=== PATIENT | female | born 1980 | race Caucasian/White ===

== ENCOUNTER 2019-10-08 06:25 | Emergency (ER) | payer MEDICAID ==
[~2019-10-08] VITALS: Ht 175.3 cm; Wt 122.7 kg
[2019-10-08 06:36] VITALS: TEMP 97.8
[2019-10-08 07:33] LABS: BASO % 0.4 % (0.0-2.0); EOS % 0.1 % (0-4.0); GRAN # 6.2 (1.4-6.5); GRAN % 74.5 % (42.2-75.2); LYMPH # 1.5 (1.2-3.4); LYMPH % 17.8 % (20.0-51.0); MEAN CELL VOLUME 69 fl (80.0-100.0); MEAN CORPUSCULAR HGB CONC 29 g/dl (33.0-37.0); MEAN PLATELET VOLUME 9.6 fl (7.4-10.4); MONO # 0.6 (0.1-0.6); MONO % 6.7 % (1.7-9.3); PLATELET COUNT 443 K/mm3 (130-400); RED BLOOD COUNT 3.97 M/mm3 (4.10-5.30); REDCELL DISTRIBUTION WIDTH-CV 19.9 % (11.5-14.5)
[2019-10-08 07:35] LABS: HEMATOCRIT 27.2 % (37.0-47.0); HEMOGLOBIN 7.8 g/dl (12.5-16.0); MEAN CORPUSCULAR HEMOGLOBIN 20 pg (27.0-31.0)
[2019-10-08 07:44] LABS: ALBUMIN 4.4 gm/dL (3.5-5.0); BILIRUBIN,TOTAL 0.4 mg/dL (0.0-1.0); C-REACTIVE PROTEIN 3.7 mg/dL (0.0-0.9); CALCIUM 9.4 mg/dL (8.4-10.2); CREATININE, serum 0.7 (0.52-1.25); POTASSIUM 3.9 mmol/L (3.4-5.0); TOTAL PROTEIN 7.9 gm/dL (6.4-8.2)
[2019-10-08 07:49] LABS: COLLECTION METHOD CLEAN CATCH
[2019-10-08 08:06] LABS: MUCOUS Present /lpf; PH 6 (5-8); URINE APPEARANCE Cloudy; URINE BACTERIA Occasional /hpf; URINE BILIRUBIN Negative (NEGATIVE); URINE BLOOD 3+ (NEGATIVE); URINE CALCIUM OXALATE CRYSTAL Present /hpf; URINE COLOR Red; URINE GLUCOSE Negative (NEGATIVE); URINE KETONE Negative (NEGATIVE); URINE LEUKOCYTE ESTERASE 2+ (NEGATIVE); URINE NITRATE Negative (NEGATIVE); URINE PROTEIN(semi-quant) 2+ (NEGATIVE); URINE RBC >50 /hpf
[2019-10-08] MEDS ORDERED: PERCOCET 325 MG1 TA2 PO (14:03)
[2019-10-08 14:45] VITALS: BP 146/87; PULSE 110
[2019-10-08] MEDS ORDERED: DAZIDOX10 MG PO (15:23)
[2019-10-08] MEDS ORDERED: TYLENOL 500MG500 MG PO (15:24)
== END 2019-10-08 14:45 | disposition home or self-care (01) ==
LOC: COL.ER 06:25
PROVIDERS: Emergency Medicine
DX: C53.9 Malignant neoplasm of cervix uteri, unspecified (principal)
CPT/HCPCS: J1170; J2550; J7030; J7120; Q9967

== ENCOUNTER 2019-10-08 14:05 | Outpatient (RCR) | payer MEDICAID ==
[2019-10-08] VITALS (7 sets, daily range): BP systolic 131–156; BP diastolic 76–89; PULSE 84–96; TEMP 98.2–99.1
[~2019-10-08 14:05] MED LIST: PERCOCET 325 MG1 TA2 PO
[2019-10-08] MEDS ORDERED: DAZIDOX10 MG PO (15:23)
[2019-10-08] MEDS ORDERED: TYLENOL 500MG500 MG PO (15:24)
--- NOTE | 2019-10-08 19:20 | NUR ---
Transfusion of 1 unit PRBC is complete. pt has tolerated transfusion with no problem, she has been ambulatory to br several times during transfusion, she has c/o rt lower back pain and lower abd pain... we tried warm blankets and supporting her low back while turning to rt side with some relief. pt did sleep some. 18 g saline lock to rac was dc'd after transfusion, dressing was applied. Pt plans to f/u with radiation oncologist tomorrow as scheduled. Pt was escorted to exit via wheelchair with her who has been with her throughout.
== END 2019-10-08 19:50 | disposition home or self-care (01) ==
LOC: EUO 14:05
DX: C53.9 Malignant neoplasm of cervix uteri, unspecified (principal)
CPT/HCPCS: J7050; P9016

== ENCOUNTER 2020-01-18 11:22 | Inpatient (IN) | payer MEDICAID ==
[~2020-01-18] VITALS: Ht 175.3 cm; Wt 102.5 kg
[~2020-01-18 11:22] MED LIST changes: +DAZIDOX10 MG PO; +TYLENOL 500MG500 MG PO
--- NOTE | 2020-01-18 13:35 | NUR ---
Patient arrives to room via cot by [facility]. Transfers from cot to bed with assist of two. Patient is weak and feels like legs are going to give out. Having pain in low back and bilat groin rating 7-8/10 and describes as "being punched in the gut", intermittent but as pain gets worse is more constant. Has 20gauge IV in left AC that was started at [facility]. Irving is patent draining clear yellow urine. Patient says that she has occasional vaginal blood clots, nothing too much at this time. Does have nausea. Assisted into comfortable position in bed. Oriented to room.
[2020-01-18] MEDS ORDERED: COMPAZINE 110 MG/TAB PO (14:17)
[2020-01-18 14:18] VITALS: BP 144/87; PULSE 99; TEMP 97.5
[2020-01-18 15:40] VITALS: BP 135/73; PULSE 98; TEMP 97.8
--- NOTE | 2020-01-18 16:29 | NUR ---
Lying in bed in supine position with eyes closed. Resp even and unlabored. No signs or symptoms of discomfort noted at this time. Family in room with the patient.
[2020-01-18 20:10] VITALS: BP 129/78; PULSE 104; TEMP 98.4
[2020-01-18 23:25] VITALS: BP 141/80; PULSE 106; TEMP 97.5
[2020-01-19] VITALS (12 sets, daily range): BP systolic 126–152; BP diastolic 76–99; PULSE 88–105; TEMP 97.6–98.6
--- NOTE | 2020-01-19 01:48 | NUR ---
Patient continues to complain of nausea and pain. PRN pain medication and Zofran given as needed. At 0130 patient called out and reported she was vomiting. Dr. Hardin called for additional anti-emetic. Reglan 5mg IV now order given and administered. Patient reports green emesis. Moderate amount noted by CRAWLER TRACTOR OPERATOR. Patient assisted back into bed. Will continue to provide supportive care with pain medication and Zofran as ordered. Will continue to monitor patient.
[2020-01-19 06:41] LABS: INR 1.5 (0.8-3.0); MEAN CELL VOLUME 94 fl (80.0-100.0); MEAN CORPUSCULAR HGB CONC 31 g/dl (33.0-37.0); MEAN PLATELET VOLUME 8.8 fl (7.4-10.4); PLATELET COUNT 233 K/mm3 (130-400); RED BLOOD COUNT 2.56 M/mm3 (4.10-5.30); REDCELL DISTRIBUTION WIDTH-CV 19.3 % (11.5-14.5)
[2020-01-19 06:44] LABS: PARTIAL THROMBOPLASTIN TIME 29.8 SECONDS (26.0-37.0)
[2020-01-19 06:46] LABS: ALBUMIN 2.8 gm/dL (3.5-5.0); CALCIUM 9.2 mg/dL (8.4-10.2); PHOSPHOROUS 8.4 mg/dL (2.5-4.5); POTASSIUM 5.5 mmol/L (3.4-5.0)
[2020-01-19 06:48] LABS: HEMOGLOBIN 7.4 g/dl (12.5-16.0); MEAN CORPUSCULAR HEMOGLOBIN 29 pg (27.0-31.0)
[2020-01-19 06:54] LABS: CREATININE, serum 15.31 (0.52-1.25)
[2020-01-19 07:33] LABS: BAND 16 % (0-10); BURR CELLS 1+; LYMPHOCYTE 3 % (20.0-51.0); METAMYELOCYTE 1 % (0-0); NEUTROPHILS 80 % (42.0-75.2); PLATELET ESTIMATE NORMAL (NORMAL); SCHISTOCYTES 1+; TEAR DROP CELLS 1+
--- NOTE | 2020-01-19 08:45 | NUR ---
Patient arrived bacl from OR at this time. Went to restroom to try and have a BM immediately. No BM. Pt is now back in bed. Complains of dry mouth and pain at a 5 1/2. The catheter seems to bother her as she states. "it feels weird". Will monitor vital signs per protocol. Mother is currently at the bedside. No further needs expressed at this time. Call light is within reach.
--- NOTE | 2020-01-19 09:30 | NUR ---
Assessment complete. Patient resting in bed post procedure. States she is comfortable, just tired. Irving is patent and draining light red urine at this time. She states the catheter feels weird but her pain is mild. IV site is CD&I, switched her from NS to 1/[address] Hardin verbal order, running at 150 ml/hr. Dr. Hardin also states to really push her fluid intake throughout the day. Mother is at the bedside with the patient at this time. No further needs were expressed at this time. Call light is within reach.
--- NOTE | 2020-01-19 09:50 | NUR ---
Pt tolerating fluids well at this time. No nausea or vomiting. Continuing to monitor vital signs per protocol.
--- NOTE | 2020-01-19 11:24 | NUR ---
Initial visit; Patient expressed fear of from Voip Network Engineer visit until Voip Network Engineer explained she was offering spiritual care, making sure patient knew there was someone available to pray for her and offer God's blessings. Patient's mother was present offering comfort as well.
--- NOTE | 2020-01-19 11:27 | NUR ---
Pt back from surgery at 0844. LOC x4, ambulating, catheter inplace; no leaking. Urine color light hematuria. INT in Left AC, no redness, infiltration or edema noted. Post-op vital signs initiated at 0853 per protocol. Patient reports pain 6/10 to lower back. Patient denies the need for pain meds.
--- NOTE | 2020-01-19 11:48 | NUR ---
Contacted [facility] in reference to the records from her last stay on 01/16, woman in Medical Records stated she would fax it over for me. Patient is aware of the transfer of information.
--- NOTE | 2020-01-19 12:53 | NUR ---
MARIELLE met with the patient and her mother, Giselle, to discuss discharge plan. The patient lives in [place] with her (Juan, ph#[phone]), their four children, and her mother. She reports independence with ADLs and does not have any DME. She states that she would be interested in getting a cane, but is unable to afford one. MARIELLE contacted [facility] and they have donated canes, that the patient can use. MARIELLE informed the patient and her mother of this. MARIELLE provided them with [facility]'s phone number and address. The patient does not have a PCP at this time. She states that she needs to talk to her about where to establish a PCP at. She receives her medications at [facility] and she reports no difficulties obtaining her meds. The patient does not have advanced directives completed, but she was interested in obtaining a form for DPOA-HC. MARIELLE provided. The patient plans to return home with her family upon discharge. No additional needs at this time, but SW to continue to follow.
--- NOTE | 2020-01-19 17:42 | NUR ---
Pt has had a good day. Her pain has been minimal and she has stated she is comfortable all day long. She is aware of the need to increase PO fluids. Irving patent draining aber colored urine. Color has improved as the day has progressed. Pt has already question when the catheter can be removed, I informed her that is per doctors orders but will not be today. Mother has been at the bedside all day. No further needs were expressed at this time. Call light is in reach.
[2020-01-19 18:17] LABS: ALBUMIN 3.6 gm/dL (3.5-5.0); CALCIUM 10.1 mg/dL (8.4-10.2); CREATININE, serum 10.1 (0.52-1.25); PHOSPHOROUS 7.3 mg/dL (2.5-4.5)
--- NOTE | 2020-01-19 20:19 | NUR ---
PT WANTING INFORMATION ON HER PROCEDURE EARLIER IN THE DAY TO SHARE INFORMATION WITH HER AT BEDSIDE. PT'S LE ELEVATED WITH A PILLOW AND SCD'S IN PLACE. PT TOOK MEDS WITH NO ISSUES. PT UP TO BATHROOM X1 ASSIST. PT NOW BACK IN BED RELAXED. TABLE AT BEDSIDE WITH CALL LIGHT AND WATER AND SNACK. NO OTHER NEEDS AT THIS TIME AND NOT COMPLAINING OF PAIN OR DISCOMFORT.
[2020-01-20] VITALS (8 sets, daily range): BP systolic 156–186; BP diastolic 87–109; PULSE 64–112; TEMP 97.5–98.7
--- NOTE | 2020-01-20 04:50 | NUR ---
PT IN BED AWAKE AND ALERT. PT VERBALIZING NAUSEA, ALL VITALS WITHIN NORMAL LIMITS EXCEPT BP SLIGHTLY ELEVATED. RIVERA BAG EMPTIED AND OUTPUT RECORDED. PT HAD TABLE, DRINK, AND CALL LIGHT AT BEDISDE. NO OTHER NEEDS REQUESTED AT THIS TIME.
--- NOTE | 2020-01-20 05:00 | NUR ---
Assessments et notes per this shift reviewed et agreed upon by this RN
--- NOTE | 2020-01-20 07:16 | NUR ---
0716 patient up in bed awake, alert and oriented x4. 1000ml of 1/2 normal saline infusing at 200ml/hr with 200ml left to infuse. Left AC assessed, no redness, edema, or infiltration noted. Catheter in place with no leaking. Urine color marian and clear. Patient complains of pain 5/10 in lower back and groin area. Patient state's "pain is just there." Not requesting pain medication at this time.
[2020-01-20 07:21] LABS: MEAN CELL VOLUME 94 fl (80.0-100.0); MEAN CORPUSCULAR HGB CONC 31 g/dl (33.0-37.0); PLATELET COUNT 303 K/mm3 (130-400); RED BLOOD COUNT 2.64 M/mm3 (4.10-5.30); REDCELL DISTRIBUTION WIDTH-CV 19.5 % (11.5-14.5)
[2020-01-20 07:27] LABS: HEMATOCRIT 24.9 % (37.0-47.0); HEMOGLOBIN 7.6 g/dl (12.5-16.0); MEAN CORPUSCULAR HEMOGLOBIN 29 pg (27.0-31.0)
[2020-01-20 07:35] LABS: CALCIUM 9.5 mg/dL (8.4-10.2); CREATININE, serum 6.08 (0.52-1.25); PHOSPHOROUS 6.3 mg/dL (2.5-4.5); POTASSIUM 4.4 mmol/L (3.4-5.0)
[2020-01-20 08:22] LABS: ANISOCYTOSIS 2+; BAND 17 % (0-10); HYPOCHROMIA 1+; LYMPHOCYTE 6 % (20.0-51.0); METAMYELOCYTE 1 % (0-0); NEUTROPHILS 74 % (42.0-75.2)
[2020-01-20 08:23] LABS: PLATELET ESTIMATE NORMAL (NORMAL)
--- NOTE | 2020-01-20 09:00 | NUR ---
Assessment complete. Pt laying in bed. She seems a little anxious this morning but is doing well. Urine is a brake operator sheet metal marian color than yesterday, showing improvement. seems frustrated with the lack of communication with the doctors. They stated concern related to her hair loss, I mentioned this to Carla Lopez' nurse. Pt keeps stating that she feels like she needs to have a bowel movement, she thought she had one this morning and was concerned that there was blood in it. She is also menstruating. Also reported this to Carla. Will try to get a stool occult if she is able to have a BM. Hat has been placed in the back of the commode. has been at the bedside all day. She has been eating minimal ammounts through out the day. I keep encouraging PO fluids. She was slightly emotional about how difficult it is to drink that much this morning. is very supportive of the need to continue drinking. IV site is CD&I. 1/2 NS running at 200 mls/he at this time. She states her pain is a 5/10 and lies in the urethral to lower abdomen area, PRN pain medication was provided for this pain. No further needs were expressed at this time. Call light is in reach.
--- NOTE | 2020-01-20 18:35 | NUR ---
Pt had a pretty good day. She gets anxious when small things occur like a leak in her IV. She was concerned about having blood in her stool but she is on her period and stated she does not thing she even had a bowel movement yet today it may have just been from her period. Her blood pressure jumped to the 180/100s twoce today. Called this evening as it was not lowering with rechecks. He ordered PRN Apresoline, administered this. She complains of pelvic urethral aching. She spoke with Dr. Kirkland about this and he said this is normal. PRN pain medication provided. No further needs. Call light in reach.
--- NOTE | 2020-01-20 20:32 | NUR ---
PT IN BED WITH DINNER TRAY AND CALL LIGHT AT BEDSIDE. AND DAUGHTER ALSO AT BEDSIDE. PT APPEARS SAD AND DROWSY. STATES PAIN IS A 6/10 EVEN AFTER PHARMACOLOGICAL PAIN MANAGEMENT. FLUIDS WERE HUNG AND MEDICATIONS GIVEN ALONG WITH EDUCATION ON WHY SHE WAS GETTING THEM. ASSESSMENT UNREMARKABLE, AOX4.
[2020-01-21 00:12] VITALS: BP 164/92; PULSE 77; TEMP 98.2
--- NOTE | 2020-01-21 01:21 | NUR ---
PT COMPLAINING OF PAIN 07/11. ROXYCODONE ADMINISTERED AND PAIN WENT DOWN TO A 7 AFTER VERIFICATION. PT STATED SHE "FELT WEIRD" AND THAT THERE WAS PRESSURE IN HER LOWER BACK. DILAUDID WAS THEN ADMINISTERED. UPON PAIN REASSESSMENT PT IN BED SLEEPING PEACEFULLY.
[2020-01-21 03:48] VITALS: BP 147/99; PULSE 117; TEMP 99.7
--- NOTE | 2020-01-21 03:49 | NUR ---
pt reporting pain 8/10 with guarding and facial grimacing. complaining of LLQ pain. After reassessing her pain it was still at an 8/10 in same area. roxycodone was then administered. will reasess at later time.
--- NOTE | 2020-01-21 05:53 | NUR ---
pt in bed still complaining of pain 07/11 so dilaudid was administered. a new bag of fluids was hung and medications were administered. blood pressure was 156/98 so hydralazine was not needed at this time. her borderline temp went down to 98.8. pt repositioned with pillows. volume in pump cleared, blackburn emptied.
[2020-01-21 07:50] LABS: PATHOLOGY DIFF REVIEW OK +
[2020-01-21 07:52] VITALS: BP 152/97; PULSE 111; TEMP 97.9
[2020-01-21 08:09] LABS: MEAN CELL VOLUME 92 fl (80.0-100.0); MEAN CORPUSCULAR HGB CONC 31 g/dl (33.0-37.0); MEAN PLATELET VOLUME 8.9 fl (7.4-10.4); PLATELET COUNT 355 K/mm3 (130-400); RED BLOOD COUNT 3.15 M/mm3 (4.10-5.30); REDCELL DISTRIBUTION WIDTH-CV 18.6 % (11.5-14.5)
[2020-01-21 08:18] LABS: HEMATOCRIT 29.1 % (37.0-47.0); HEMOGLOBIN 8.9 g/dl (12.5-16.0); MEAN CORPUSCULAR HEMOGLOBIN 28 pg (27.0-31.0)
[2020-01-21 08:20] LABS: ALBUMIN 3.1 gm/dL (3.5-5.0); CALCIUM 8.7 mg/dL (8.4-10.2); CREATININE, serum 1.79 (0.52-1.25); PHOSPHOROUS 3.2 mg/dL (2.5-4.5); POTASSIUM 3.2 mmol/L (3.4-5.0)
[2020-01-21 08:48] LABS: BAND 32 % (0-10); HYPOCHROMIA 2+; LYMPHOCYTE 2 % (20.0-51.0); METAMYELOCYTE 3 % (0-0); PLATELET ESTIMATE NORMAL (NORMAL)
[2020-01-21 08:49] LABS: NEUTROPHILS 62 % (42.0-75.2); TOXIC GRANULATION PRESENT
--- NOTE | 2020-01-21 09:07 | NUR ---
Pt awake and alert upon entry, has C/O pain in lower abdominal area, no other issues at this time, shift assessments complete, left Pt call light in reach, bed in lowest position.
[2020-01-21 12:28] VITALS: BP 158/97; PULSE 112; TEMP 98.5
[2020-01-21 12:53] LABS: COLLECTION METHOD CATHETER
[2020-01-21 13:19] LABS: MUCOUS Present /lpf; PH 6 (5-8); SQUAMOUS EPITHELIAL 0-2 /hpf; URINE APPEARANCE Hazy; URINE BACTERIA Rare /hpf; URINE BILIRUBIN Negative (NEGATIVE); URINE BLOOD 3+ (NEGATIVE); URINE COLOR Yellow; URINE GLUCOSE Negative (NEGATIVE); URINE KETONE Negative (NEGATIVE); URINE LEUKOCYTE ESTERASE 1+ (NEGATIVE); URINE NITRATE Negative (NEGATIVE); URINE PROTEIN(semi-quant) 1+ (NEGATIVE); URINE RBC >50 /hpf; URINE UROBILINOGEN Negative (NEGATIVE)
[2020-01-21 16:19] VITALS: BP 158/86; PULSE 92; TEMP 99
--- NOTE | 2020-01-21 18:30 | NUR ---
Pt resting in the room, has C/O pain throughout the day, with continuing levels after pain medications administered, has been up several times to the restroom trying to deficate, without success, urine output remains good, VS have remained stable.
[2020-01-21 20:00] VITALS: BP 155/101; PULSE 95; TEMP 98.6
--- NOTE | 2020-01-21 21:07 | NUR ---
PT IN BED COMPLAINING OF PAIN 07/11. DILAUDID ADMINISTERED AND UPON FOLLOW UP SHE CLAIMED IT DIDN'T HELP. WAITING TO GIVE ROXYCODONE ACCORDING TO SCHEDULE. PT ALSO VOMITED WHILE IN ROOM, GREEN COLOR WITH FRUITY SMELL. ZOFRAN ADMINISTERED AND UPON FOLLOW UP SHE FELT "A LITTLE BETTER". CRACKERS WERE BROUGHT IN BECAUSE SHE REFUSED DINNER DUE TO NAUSEA. PT STILL ORALLY DRINKING FLUIDS MUCH POSSIBLE. MEDS GIVEN. TABLE, EMESIS BASIN, CALL LIGHT, AND CELL PHONE AT BEDSIDE. DAUGHTER AND ALSO PRESENT. DENIES NO OTHER NEEDS AT THIS TIME.
[2020-01-22] VITALS (8 sets, daily range): BP systolic 140–176; BP diastolic 86–104; PULSE 84–106; TEMP 97.5–98.5
--- NOTE | 2020-01-22 06:01 | NUR ---
PT EXPERIENCING 3 DIFFERENT EPISODES OF VOMITING TONIGHT, GREEN IN COLOR WITH FRUITY ODOR. PT HAVING EXTREME PAIN AND ROXYCODONE AND DILAUDID ARE NOT PROVIDING RELIEF BUT PT RECEIVING THEM WHEN AVAILABLE. PT BP AT 167/99, HYDRALAZINE ADMINISTERED BUT PT VOMITED RIGHT AFTER. NO PILL SEEN IN VOMIT. BP RECHECKED IN 30 MIN AND BP DOWN W/ SYSTOLIC IN 150'S. PHYSICIAN NOTIFIED OF EPISODE. I EXPLAINED ALL HER JUICE INTAKE MAY BE CAUSE OF HER UPSET STOMACH SO SHE AGREED TO DRINK WATER INBETWEEN HER JUICES. PT REFUSED MORNING MEDS BECAUSE SHE WAS AFRAID SHE WOULD VOMIT AGAIN. TABLE, CALL LIGHT, CELL PHONE, DRINK AT BEDSIDE. PT DENIES ANY OTHER NEEDS AT THIS TIME.
[2020-01-22 06:28] LABS: MEAN CELL VOLUME 92 fl (80.0-100.0); MEAN CORPUSCULAR HGB CONC 31 g/dl (33.0-37.0); MEAN PLATELET VOLUME 8.6 fl (7.4-10.4); PLATELET COUNT 264 K/mm3 (130-400); RED BLOOD COUNT 3.18 M/mm3 (4.10-5.30); REDCELL DISTRIBUTION WIDTH-CV 17.7 % (11.5-14.5)
[2020-01-22 06:34] LABS: ALBUMIN 2.9 gm/dL (3.5-5.0); CALCIUM 8.6 mg/dL (8.4-10.2); CREATININE, serum 0.92 (0.52-1.25); MAGNESIUM 1.6 mg/dL (1.6-2.3); PHOSPHOROUS 3.3 mg/dL (2.5-4.5); POTASSIUM 3.1 mmol/L (3.4-5.0)
[2020-01-22 06:41] LABS: HEMATOCRIT 29.2 % (37.0-47.0); HEMOGLOBIN 8.9 g/dl (12.5-16.0); MEAN CORPUSCULAR HEMOGLOBIN 28 pg (27.0-31.0)
[2020-01-22 08:08] LABS: ANISOCYTOSIS 1+; BAND 7 % (0-10); EOSINOPHIL 2 % (0-4); HYPOCHROMIA 2+; LYMPHOCYTE 15 % (20.0-51.0); METAMYELOCYTE 5 % (0-0); NEUTROPHILS 64 % (42.0-75.2); PLATELET ESTIMATE NORMAL (NORMAL)
--- NOTE | 2020-01-22 09:48 | NUR ---
Pt awake and alert upon entry, has C/O pain in lower abdominal region, shift assessment complete, left Pt call light in reach,, bed in lowest position.
--- NOTE | 2020-01-22 14:07 | NUR ---
Primary nurse was assisted with [phone] patient care by [employer] student Swathi Estevez and [employer] instructor Kristen Delarosa RN-BC.
--- NOTE | 2020-01-22 19:37 | NUR ---
Pt rested in the room during the day, has been OOB several times to the restroom and is having small bowel movements. Irving catheter discontinued this afternoon, tip and baloon was intact upon removal, Pt tolerated the procedure well, Pt was able to void post removal. Pt still has C/O pain in her lower abdominal region. VS rave remained stable.
--- NOTE | 2020-01-22 20:25 | NUR ---
Patient assessed at this time. Alert and oriented x 4, and able to make needs known. Continues to have pain rated from 7-8. Attempted to given PRN Roxicodone along with other HS medications, but as soon as patient took medicine, she had about 200 mls of dark green emesis. BP had been 176/104. Called Anju and updated on patient having emesis and requested IV medication due to being unable to take oral medications. New order for IV Appresoline received and given per orders. NS continues at 75 ml/hr. Asked if she had been able to eat anything today and states she was not able to eat. Reports she has been drinking fluids ok, but anytime she takes medications orally she has emesis. LS CTA. Respirations even and unlabored. HRR, increases with activity. Capillary refill less than 3 seconds. Non-tenting skin turgor. BSAx4. Reports 3 different small BMs today. Denies burning, pain, and discomfort with urination. Urine clear and yellow. No edema. Voices no further questions, needs, or concerns at this time. Call light within reach.
--- NOTE | 2020-01-22 21:21 | NUR ---
Patient given PRN Morphine as requested for pain at this time.
--- NOTE | 2020-01-23 00:22 | NUR ---
Patient complaining of level 7 pain to abdomen, and complaining of nausea. Given PRN Morphine and Zofran at this time as requested.
[2020-01-23 03:03] VITALS: BP 156/95; PULSE 98; TEMP 98.2
--- NOTE | 2020-01-23 03:19 | NUR ---
Patient complaining of level 7 pain to abdomen. Given PRN Morphine at this time.
--- NOTE | 2020-01-23 04:38 | NUR ---
Patient given PRN Zofran for nausea as requested. Rated pain as a 6 after receiving PRN Morphine about an hour ago.
--- NOTE | 2020-01-23 05:03 | NUR ---
Patient has been receiving PRN Morphine 4 mg IV Q3H per orders throughout the night. Has also been receiving PRN Zofran 4 mg IV Q4H per orders for nausea. Has not had any further emesis since beginning of shift when trying to take oral medication. Patient has been urinating well throughout the night. Calls for assistance with ambulation due to pain, but has been attempting more to reposition and transfer self independently. Has been drinking fluids well during the night, but still has not been able to eat anything due to nausea. IV fluids continue per orders. Continues to refuse/decline all oral medications. Received PRN Appresoline IV per orders at beginning of shift, which was effective. Voices no further questions, needs, or concerns at this time. Call light is within reach.
--- NOTE | 2020-01-23 06:19 | NUR ---
Patient given PRN Morphine for pain at this time as requested. Rated pain as a 7 to abdomen/thighs/legs. Voices no further questions, needs, or concerns at this time. Refused to take PO Protonix due to oral medications making her sick.
[2020-01-23 06:25] LABS: MEAN CELL VOLUME 92 fl (80.0-100.0); MEAN CORPUSCULAR HGB CONC 31 g/dl (33.0-37.0); PLATELET COUNT 254 K/mm3 (130-400); RED BLOOD COUNT 3.01 M/mm3 (4.10-5.30); REDCELL DISTRIBUTION WIDTH-CV 17.5 % (11.5-14.5)
[2020-01-23 06:32] LABS: ALBUMIN 2.7 gm/dL (3.5-5.0); CALCIUM 8.3 mg/dL (8.4-10.2); CREATININE, serum 0.75 (0.52-1.25); MAGNESIUM 1.7 mg/dL (1.6-2.3); PHOSPHOROUS 3.1 mg/dL (2.5-4.5)
[2020-01-23 06:42] LABS: HEMATOCRIT 27.7 % (37.0-47.0); HEMOGLOBIN 8.5 g/dl (12.5-16.0); MEAN CORPUSCULAR HEMOGLOBIN 28 pg (27.0-31.0)
--- NOTE | 2020-01-23 07:00 | NUR ---
Bedside shift report received from GWYN Lucero. pT i nbed resting with eyes closed, will continue to monitor.
[2020-01-23 07:16] LABS: POTASSIUM 2.9 mmol/L (3.4-5.0)
[2020-01-23 08:28] VITALS: BP 157/96; PULSE 80; TEMP 98.2
--- NOTE | 2020-01-23 08:53 | NUR ---
Assessment charted. PRN nausea meds given, at bedside encouraging PO intake but pt feeling too nauseated to eat at this time. Resting quietly in bed with eyes closed. Wants PRN pain meds as soon as available for pain of 8/10 to lower abd and shooting down R leg. Will continue to monitor.
[2020-01-23 09:51] LABS: BAND 2 % (0-10); EOSINOPHIL 1 % (0-4); LYMPHOCYTE 3 % (20.0-51.0); NEUTROPHILS 89 % (42.0-75.2)
[2020-01-23 09:52] LABS: ANISOCYTOSIS 2+; HYPOCHROMIA 1+; OVALOCYTES 1+
[2020-01-23 11:40] VITALS: BP 154/85; PULSE 86; TEMP 98.3
--- NOTE | 2020-01-23 14:58 | NUR ---
Called x3 and left 2 VMs regarding consult for ID. VM left will await return call
[2020-01-23 17:42] VITALS: BP 159/90; PULSE 87; TEMP 98.8
--- NOTE | 2020-01-23 19:09 | NUR ---
Still have not received a call back from Dr. Hein, notified night RN. pt continues to have intractable pain and nausea. Resting in be,d up to bathroom often over shift to void. and family at bedside intermittently. Denies needs, bedside shift report given to nightshift nurse who will resume care.
[2020-01-23 19:35] VITALS: BP 152/89; PULSE 91; TEMP 99
[2020-01-23 23:32] VITALS: BP 143/88; PULSE 87; TEMP 98.9
--- NOTE | 2020-01-24 00:06 | NUR ---
ASSESSMENT COMPLETE. RESTING IN BED. SO AT BEDSIDE. C/O NAUSEA, ABD PAIN. REPORTS NO VAGINAL BLEEDING OBSERVED. DENIES NEEDS AT THIS TIME.
[2020-01-24 03:25] VITALS: BP 144/89; PULSE 94; TEMP 98.7
[2020-01-24 06:39] LABS: MEAN CELL VOLUME 94 fl (80.0-100.0); MEAN CORPUSCULAR HGB CONC 31 g/dl (33.0-37.0); MEAN PLATELET VOLUME 8.8 fl (7.4-10.4); PLATELET COUNT 220 K/mm3 (130-400); RED BLOOD COUNT 2.84 M/mm3 (4.10-5.30); REDCELL DISTRIBUTION WIDTH-CV 17.5 % (11.5-14.5)
[2020-01-24 06:42] LABS: HEMATOCRIT 26.6 % (37.0-47.0); HEMOGLOBIN 8.1 g/dl (12.5-16.0); MEAN CORPUSCULAR HEMOGLOBIN 29 pg (27.0-31.0)
[2020-01-24 06:51] LABS: ALBUMIN 2.8 gm/dL (3.5-5.0); CALCIUM 8.6 mg/dL (8.4-10.2); CREATININE, serum 0.81 (0.52-1.25); PHOSPHOROUS 3.7 mg/dL (2.5-4.5); POTASSIUM 3.8 mmol/L (3.4-5.0)
--- NOTE | 2020-01-24 07:00 | NUR ---
Report received from GWYN Morris. Pt in bed resting with eyes closed, will continue to monitor.
--- NOTE | 2020-01-24 08:15 | NUR ---
Assessment charted. Pt states she is feeling better todya, nausea has improved, pain has improved to a 6/10, vitals have imporoved. Pt up to bathroom often, continues to have marian hazy malodorous urine. Eating some breakfast. Resting in bed, PRN pain and nausea meds provided per request. Will conitnue to monitor.
[2020-01-24 08:20] LABS: BAND 14 % (0-10); LYMPHOCYTE 3 % (20.0-51.0); METAMYELOCYTE 1 % (0-0); NEUTROPHILS 79 % (42.0-75.2)
[2020-01-24 08:21] LABS: ANISOCYTOSIS 1+; HYPOCHROMIA 2+; PLATELET ESTIMATE NORMAL (NORMAL)
[2020-01-24 08:24] VITALS: BP 125/83; PULSE 100; TEMP 97.4
[2020-01-24 13:55] VITALS: BP 128/75; PULSE 99; TEMP 99
[2020-01-24 16:36] VITALS: BP 137/77; PULSE 97; TEMP 98.8
--- NOTE | 2020-01-24 17:58 | NUR ---
PT continues to have pain and nausea, PRN pain meds and nausea meds given over shift. Intermittently pt has been feeling better, able to eat a few times today and has an appetite but at times continues to feel unrelenting pain and nausea. Pt resting in bed, had some visitors today. Denies needs, will give bedside shift report to nightshift nurse who will resume care.
--- NOTE | 2020-01-24 19:45 | NUR ---
Shift assessment complete. Pt resting in bed, awake, a&o, cooperative c cares. Pt continued c/o pelvic pain rated 7/10 at this time; PRN et scheduled pain meds provided per pt req. Denies any other c/o at this time. IV patent. Tele in place. Pt amb to BR, standby assist c steady gait. Pt denies further needs at this time. Call light in reach, will continue to monitor.
[2020-01-24 20:02] VITALS: BP 142/85; PULSE 109; TEMP 98.8
[2020-01-24 23:17] VITALS: BP 137/86; PULSE 107; TEMP 99.2
[2020-01-25 03:28] VITALS: BP 134/85; PULSE 115; TEMP 98.9
[2020-01-25 06:26] LABS: MEAN CELL VOLUME 94 fl (80.0-100.0); MEAN CORPUSCULAR HGB CONC 31 g/dl (33.0-37.0); MEAN PLATELET VOLUME 9.7 fl (7.4-10.4); PLATELET COUNT 237 K/mm3 (130-400); RED BLOOD COUNT 2.91 M/mm3 (4.10-5.30); REDCELL DISTRIBUTION WIDTH-CV 17.6 % (11.5-14.5)
[2020-01-25 06:30] LABS: HEMATOCRIT 27.3 % (37.0-47.0); HEMOGLOBIN 8.4 g/dl (12.5-16.0); MEAN CORPUSCULAR HEMOGLOBIN 29 pg (27.0-31.0)
[2020-01-25 06:40] LABS: ALBUMIN 2.7 gm/dL (3.5-5.0); CALCIUM 8.3 mg/dL (8.4-10.2); CREATININE, serum 0.91 (0.52-1.25); MAGNESIUM 1.5 mg/dL (1.6-2.3); PHOSPHOROUS 3.9 mg/dL (2.5-4.5); POTASSIUM 3.5 mmol/L (3.4-5.0)
--- NOTE | 2020-01-25 06:40 | NUR ---
Pt resting in bed, condition unchanged. Pt c/o persistant pain et nausea through this shift. Multiple doses of PRN pain/nause meds admin c little relief. Pt has rated pain 8/10 at worst, 6/10 at best. Pt has denied other c/o. Pt denies needs at this time. Bedside shift report given to Jesus RN to assume pt cares. Reviewed pain/nause med availabilty c Jesus and pt.
[2020-01-25 07:00] LABS: BAND 14 % (0-10); LYMPHOCYTE 4 % (20.0-51.0); NEUTROPHILS 82 % (42.0-75.2); PLATELET ESTIMATE NORMAL (NORMAL)
[2020-01-25 08:20] VITALS: BP 146/86; PULSE 114; TEMP 99.7
--- NOTE | 2020-01-25 08:20 | NUR ---
Pt awake and resting in bed, has C/O pain 8/10 medications given for relief. shift assessments complete, left Pt call light in reach, bed in lowest position.
--- NOTE | 2020-01-25 09:25 | NUR ---
MARIELLE met with the patient and her , Juan, to follow up and review discharge plan. The patient's reports that the patient may be able to discharge tomorrow, 01/26. He states that her WBC was elevated today. The patient plans to return home with her family. The patient's reports that he has some concerns with the patient's eating. He states that she has not been able to eat anything. The patient reports that she gets really nauseous. MARIELLE notified the hospitalist. MARIELLE to continue to follow.
[2020-01-25 12:45] VITALS: BP 133/81; PULSE 103; TEMP 99.3
--- NOTE | 2020-01-25 14:54 | NUR ---
Pt requested Zofran for nausea. Zofran given per order. Pt in bed, eyes open, HOB elevated, TV on and call light with in reach.
[2020-01-25 16:36] VITALS: BP 130/86; PULSE 97; TEMP 100.2
--- NOTE | 2020-01-25 16:38 | NUR ---
RN and provider notified of elevated temp. PRN Tylenol given per order. Pt educated on new order for UA and clean hat placed in pt's room. Pt advised to call for staff when needing to use the restroom next. Pt stated understanding. Pt in bed with eyes closed, TV on and call light in reach.
[2020-01-25 17:41] VITALS: TEMP 99.8
[2020-01-25 18:37] LABS: COLLECTION METHOD CATHETER
--- NOTE | 2020-01-25 18:49 | NUR ---
Pt resting in the room today, has C/O pain generally states 7-8/10, medications given for relief, no other complaints, VS have remained stable, Pt up adlib to the restroom, voiding well.
[2020-01-25 19:03] LABS: MUCOUS Present /lpf; PH 5 (5-8); SQUAMOUS EPITHELIAL 0-2 /hpf; URINE APPEARANCE Cloudy; URINE BACTERIA Rare /hpf; URINE BILIRUBIN Negative (NEGATIVE); URINE BLOOD 3+ (NEGATIVE); URINE COLOR Amber; URINE GLUCOSE Negative (NEGATIVE); URINE KETONE Negative (NEGATIVE); URINE LEUKOCYTE ESTERASE 3+ (NEGATIVE); URINE NITRATE Negative (NEGATIVE); URINE PROTEIN(semi-quant) 1+ (NEGATIVE); URINE RBC >50 /hpf; URINE UROBILINOGEN >=4.0 mg/dL (NEGATIVE); URINE WBC >50 /hpf
--- NOTE | 2020-01-25 20:45 | NUR ---
Shift assessment complete. Pt resting in bed, awake, a&o, cooperative c cares. Pt reports continued pelvic pain rated 6/10 as well as continued nausea. PRN pain/nausea meds admin at this time per pt request. Pt denies any other c/o. IV patent. Tele in place. Pt denies further needs. Call light in reach, will continue to monitor.
[2020-01-25 22:00] VITALS: BP 122/75; PULSE 101; TEMP 98.9
[2020-01-26 02:56] VITALS: BP 130/80; PULSE 95; TEMP 98.2
--- NOTE | 2020-01-26 07:10 | NUR ---
Pt resting in bed, condition unchanged. Pt has continued to have persistant pelvic pain this shift rated 6-8/10. Pt has also c/o continued nausea. Pain/nausea continue to be poorly controlled despite frequent PRN medication admin. Both pain et nausea meds admin several times this shift. Pt has continued to deny other c/o. Denies needs at this time, call light in reach. Bedside shift report given to Jesus PASCAL to assume pt cares.
[2020-01-26 08:12] LABS: MEAN CELL VOLUME 92 fl (80.0-100.0); MEAN CORPUSCULAR HGB CONC 31 g/dl (33.0-37.0); MEAN PLATELET VOLUME 10.1 fl (7.4-10.4); PLATELET COUNT 209 K/mm3 (130-400); REDCELL DISTRIBUTION WIDTH-CV 17.5 % (11.5-14.5)
[2020-01-26 08:14] LABS: ALBUMIN 2.7 gm/dL (3.5-5.0); CALCIUM 8.6 mg/dL (8.4-10.2); CREATININE, serum 0.78 (0.52-1.25); PHOSPHOROUS 4.4 mg/dL (2.5-4.5); POTASSIUM 3.7 mmol/L (3.4-5.0)
--- NOTE | 2020-01-26 08:23 | NUR ---
Pt awake and alert this morning, has C/O pain medications given earlier have provided some relief. shift assessments complete, left Pt call light in reach, bed in lowest position.
[2020-01-26 08:28] LABS: HEMATOCRIT 24.9 % (37.0-47.0); HEMOGLOBIN 7.6 g/dl (12.5-16.0); MEAN CORPUSCULAR HEMOGLOBIN 28 pg (27.0-31.0)
[2020-01-26 08:37] LABS: ANISOCYTOSIS 1+; BAND 16 % (0-10); HYPOCHROMIA 2+; LYMPHOCYTE 3 % (20.0-51.0); METAMYELOCYTE 1 % (0-0); NEUTROPHILS 79 % (42.0-75.2); PLATELET ESTIMATE NORMAL (NORMAL)
[2020-01-26 08:44] VITALS: BP 132/77; PULSE 96; TEMP 98.2
[2020-01-26 13:05] VITALS: BP 130/86; PULSE 98; TEMP 97.7
[2020-01-26 16:00] LABS: HEMATOCRIT 26.1 % (37.0-47.0)
[2020-01-26 17:57] VITALS: BP 126/86; PULSE 94; TEMP 98.2
--- NOTE | 2020-01-26 19:51 | NUR ---
Pt resting in the room today, has C/O pain throughout the day, has been up adlib to the restroom, VS have remained stable.
--- NOTE | 2020-01-26 20:50 | NUR ---
Shift assessment complete. Pt resting in bed, awake, a&o, cooperative c cares. Pt c/o continued pelvic et back pain rated 8/10 as well as continued nausea; PRN pain et nausea meds admin per pt req. Pt denies any other c/o. IV patent. Tele in place. Pt denies further needs. Call light in reach, will continue to monitor.
[2020-01-26 22:15] VITALS: BP 129/83; PULSE 100; TEMP 99
[2020-01-27] VITALS (8 sets, daily range): BP systolic 121–136; BP diastolic 76–87; PULSE 93–104; TEMP 97.7–98.9
--- NOTE | 2020-01-27 00:15 | NUR ---
Blood transfusion started at this time. Reviewed s/s transfusion reaction c pt, pt verbalizes understanding. IV patent. VS stable. Tele remains in place. Will remain at bedside for first 15 min per protocol.
[2020-01-27 07:15] LABS: MEAN CELL VOLUME 91 fl (80.0-100.0); MEAN CORPUSCULAR HGB CONC 31 g/dl (33.0-37.0); MEAN PLATELET VOLUME 9.7 fl (7.4-10.4); PLATELET COUNT 219 K/mm3 (130-400); RED BLOOD COUNT 2.98 M/mm3 (4.10-5.30); REDCELL DISTRIBUTION WIDTH-CV 17.5 % (11.5-14.5)
[2020-01-27 07:18] LABS: HEMATOCRIT 27.1 % (37.0-47.0); HEMOGLOBIN 8.4 g/dl (12.5-16.0); MEAN CORPUSCULAR HEMOGLOBIN 28 pg (27.0-31.0)
[2020-01-27 07:26] LABS: ALBUMIN 2.9 gm/dL (3.5-5.0); CALCIUM 8.6 mg/dL (8.4-10.2); CREATININE, serum 0.79 (0.52-1.25); PHOSPHOROUS 4.1 mg/dL (2.5-4.5); POTASSIUM 3.7 mmol/L (3.4-5.0)
[2020-01-27 08:06] LABS: ANISOCYTOSIS 1+; BAND 16 % (0-10); LYMPHOCYTE 5 % (20.0-51.0); NEUTROPHILS 71 % (42.0-75.2); PLATELET ESTIMATE NORMAL (NORMAL)
[2020-01-27 08:07] LABS: HYPOCHROMIA 2+; MICROCYTOSIS 1+; POIKILOCYTOSIS 1+; STOMATOCYTE 1+
[2020-01-27] MEDS ORDERED: AMOXICILLIN 8751 TAB PO (11:23)
[2020-01-27] MEDS ORDERED: LOPRESSOR 225 MG/TAB PO (11:25)
[2020-01-27] MEDS ORDERED: MS CONTIN 330 MG/TAB PO (11:26)
[2020-01-27] MEDS ORDERED: NEURONTIN300 MG/CAP PO (11:27)
[2020-01-27] MEDS ORDERED: SENNA-S 50 MG-81 TAB PO (13:41)
--- NOTE | 2020-01-27 15:42 | NUR ---
The patient is to discharge back home with her and family today, 01/27. MARIELLE followed up with the patient about a PCP. The patient was interested in getting set up with a PCP at [facility]. MARIELLE contacted Geno at [facility] and secured the patient an appointment with Dr. Abisai Johnson on 02/02 at 1000. Geno faxed over the new patient documenation forms. MARIELLE notified the unit tender of appointment. MARIELLE informed the patient of the appointment and the forms to complete prior to appointment. The patient asked that MARIELLE put those forms in her discharge folder. MARIELLE did so. No additional needs at this time.
--- NOTE | 2020-01-27 17:45 | NUR ---
Pt discharged to home, discussed discharge packet, answered questions, PCT escorted Pt to entrance, Pt left with family via private transportation.
== END 2020-01-27 17:45 | disposition home or self-care (01) | DRG 659 ==
LOC: MEDICAL 11:22
PROVIDERS: Nurse Practitioner Family; Obstetrics & Gynecology; Student in an Organized Health Care Education/Training Program; Urology; ADMIT Internal Medicine Nephrology
PROC: 0T788DZ Dilation of Bilateral Ureters with Intraluminal Device, Via Natural or Artificial Opening Endoscopic (ICD-10-PCS; principal; 2020-01-19 07:30)
PROC: BT14YZZ Fluoroscopy of Kidneys, Ureters and Bladder using Other Contrast (ICD-10-PCS; 2020-01-19 07:30)
DX: N17.9 Acute kidney failure, unspecified (principal); E43 Unspecified severe protein-calorie malnutrition; N39.0 Urinary tract infection, site not specified; D62 Acute posthemorrhagic anemia; R65.10 Systemic inflammatory response syndrome (SIRS) of non-infectious origin without acute organ dysfunction; C53.9 Malignant neoplasm of cervix uteri, unspecified; N13.1 Hydronephrosis with ureteral stricture, not elsewhere classified; R80.9 Proteinuria, unspecified; I10 Essential (primary) hypertension; G89.3 Neoplasm related pain (acute) (chronic); E83.42 Hypomagnesemia; E87.6 Hypokalemia; R00.0 Tachycardia, unspecified; K59.00 Constipation, unspecified; R11.2 Nausea with vomiting, unspecified; N93.9 Abnormal uterine and vaginal bleeding, unspecified; D72.829 Elevated white blood cell count, unspecified; Z68.33 Body mass index [BMI] 33.0-33.9, adult; Z79.891 Long term (current) use of opiate analgesic; Z79.1 Long term (current) use of non-steroidal anti-inflammatories (NSAID)
CPT/HCPCS: 99232-AI; 99233-AI; 99239; A4314; C1769; C2617; J0360; J0690; J1100; J1170; J1956; J2270; J2405; J2543; J2704; J2765; J3010; J3475; J3480; J7030; P9016; Q9967